=== PATIENT | female | born 1995 | race Caucasian/White ===

== ENCOUNTER 2024-03-17 10:39 | Outpatient (CLI) | payer OTHER, SELFPAY ==
--- OUTSIDE RECORDS SUMMARY | 2024-03-17 10:46 | XMS_ITS | Encounter Summary ---
Author Name Unknown Organization [place] Address [address] [place] [address] Care Team Providers Care Color Control Operator Name Role Phone Consultants, Dario Speech Lang Path Therapist Primary Care Provi ta No Ref-Primary, Physician Primary Care Provider Encounter Details Date Type Department Care Team (Late st Contact Info) Description 07/23/[address] [facility] [address] [place] [address] Yvette Chino MD [address] [place] [address] [id number] Indication for care in labor or delivery (Primary Dx) Social History Tobacco Use Types Packs/Day Years Used Date Smoking Tobacco: Never Smokeless Tobacco: Never Alcohol Use Standard Drinks/Week Comments No 0 (1 standard drink = 0.6 oz pur e alcohol) Sex and Gender Information Value Date Recorded Sex Assigned at Not on file Gender Identity Not on file Sexual Orientation Not on file documented as of this encounter Plan of Treatment Not on file documented as of this encounter Results * Asymptomatic COVID-19 Virus (Coronavirus) by PCR Nose (07/26/2021 11:43 AM CDT) SARS CoV2 PCR Negative Negative 07/26/2021 10:16 PM CDT [facility] Comment:NEGATIVE: SARS-CoV-2 (COVID-19) RNA not detected, presumed negative. Swab NASAL STRUCTURE / Unknown Non-blood Collection / Unknown 07/26/2021 11:43 AM CDT 07/26/2021 11:44 AM CDT Narrative [facility] - 07/26/2021 10:16 PM CDT Testing was performed using the Xpert Xpress SARS-CoV-2 Assay on the [employer]pert Instrument Systems. Additional information about this Emergency Use Authorization (EUA) assay can be found via the Lab Guide. This test should be ordered for the detection of SARS-CoV-2 in individuals who meet SARS-CoV-2 clinical and/or epidemiological criteria. Test performance is unknown in asymptomatic patients. This test is for in vitro diagnostic use under the FDA EUA for laboratories certified under CLIA to perform high complexity testing. This test has not been FDA cleared or approved. A negative result does not rule out the presence of PCR inhibitors in the specimen or target RNA in concentration below the limit of detection for the assay. The possibility of a false negative should be considered if the patient's recent exposure or clinical presentation suggests COVID-19. This test was validated by the [facility]. This laboratory is certified under the Clinical Laboratory Improvement Amendments of 1988 (CLIA-88) as qualified to perform high complexity laboratory testing. Yvette Chino MD LAB - MICRO GENERAL ORDERABLES [facility] ([facility]) [address] [facility] [place] [address], [facility] [phone] documented in this encounter Visit Diagnoses Diagnosis Indication for care in labor or delivery- Primary Unspecified indication for care or intervention related to labor and delivery, unspecified as to episode of care documented in this encounter Care Teams Color Control Operator Relationship Specialty Start Date End Date Consultants, Dario Speech Lang Path Therapist [address] [place] [address] PCP - General 08/13/17 07/28/21 No Ref-Primary, Physician PCP - General 07/29/21 documented as of this encounter
--- OUTSIDE RECORDS SUMMARY | 2024-03-17 10:46 | XMS_ITS | Referral Summary ---
Author Name Unknown Organization [facility] Address [address] [place] [id number] Care Team Providers Care Test Kitchen Home Economist Name Role Phone No Ref-Primary, Physician Primary Care Provider Allergies Active Allergy Reactions Criticality Noted Date Comments Penicillins Rash Low 01/19/2016 Medications Medication Sig Dispensed Refills Start Date End Date Status Vit-Fe Fumarate-FA ( MULTIVITAMIN PLUS IRON) 27-0.8 MG TABS Take 1 tablet by mouth daily Active Active Problems Problem Noted Date Diagnosed Date (spontaneous vaginal delivery) 08/26/2017 (spontaneous vaginal delivery) 01/20/2016 Indication for care in labor or delivery 016 Indication for care in labor and delivery, deliv ered 01/19/2016 Social History Tobacco Use Types Packs/Day Years Used Date Smoking Tobacco: Never Smokeless Tobacco: Never Alcohol Use Standard Drinks/Week Comments No 0 (1 standard drink = 0.6 oz pur e alcohol) Adolescent Education Answer Date Record ed Getting School Help Needed Not on file 08/09 Sex and Gender Information Value Date Recorded Sex Assigned at Not on file Gender Identity Not on file Sexual Orientation Not on file Last Filed Vital Signs Vital Sign Reading Time Taken Comments Blood Pressure 98/63 07/30/2021 9:20 AM CDT Pulse 60 07/30/2021 9:20 AM CDT Temperature 37.1 ??C (98.7 ??F) 07/30/2021 9:20 AM CD T Respiratory Rate 16 07/30/2021 9:20 AM CDT Oxygen Saturation 99% 01/28/2020 9:30 PM CDT Inhaled Oxygen Concentration - - Weight 62.6 kg (138 lb) 07/29/2021 8:01 AM CDT Height 157.5 cm (5' 2) 07/29/2021 8:01 AM CDT Body Mass Index 25.24 07/29/2021 8:01 AM CDT Plan of Treatment Not on file Procedures Procedure Name Priority Date/Time Associated Diagnosis Comments HIV 1&2 ANTIBODY (EXTERNAL RESULT) Routine 01/09/2021 12:00 PM BORING MACHINE SET UP OPERATOR from Last 3 Months or Most Recently Relevant to Health Maintenance Results * HIV-1 Antibody (External Result) (01/09/2021 12:00 PM BORING MACHINE SET UP OPERATOR) HIV 1&2 Antibody (External) Nonreactive Nonreactive EXTERNAL LAB 01/09/2021 12:0 0 PM BORING MACHINE SET UP OPERATOR Patient Reported LAB - HIM EXTERNAL R ESULT EXTERNAL LAB External Lab from Last 3 Months or Most Recently Relevant to Health Maintenance Advance Directives For more information, please contact: [phone] * Full Code (Latest Code Status on File) Date Activated Date Inactivated Comments 07/29/2021 8:51 AM 07/29/2021 1:50 PM All basic an d advanced life-sustaining interventions are performed as appropriate Question Answer Comments Code status determined by: Discussion with patie nt/ legal decision maker * Full Code Date Activated Date Inactivated Comments 07/29/2021 8:47 AM 07/29/2021 8:51 AM All basic an d advanced life-sustaining interventions are performed as appropriate Question Answer Comments Code status determined by: Discussion with patie nt/ legal decision maker Care Teams Test Kitchen Home Economist Relationship Specialty Start Date End Date No Ref-Primary, Physician PCP - General 07/29/21
--- OUTSIDE RECORDS SUMMARY | 2024-03-17 10:46 | XMS_ITS | Clinical Summary ---
Author Name Unknown Organization [facility] Address [address] [place] [address] Care Team Providers Care High Density Finishing Operator Name Role Phone No Ref-Primary, Physician Primary [...] 07/29/2021 8:01 AM CDT Plan of Treatment Health Maintenance Due Date Last Done Comments ADVANCE CARE PLANNING 1996 ANNUAL REVIEW OF HM ORDERS 1996 YEARLY PREVENTIVE VISIT 1996 HPV IMMUNIZATION (2 - 3-dose series) 12/17/2012 11/19/2012 HEPATITIS C SCREENING 2014 HEPATITIS B IMMUNIZATION (1 of 3 - 19+ 3-dose series) 2015 PAP 2017 COVID-19 Vaccine ( - 2022- season) 2023 PHQ-2 (once per calendar year) 2023 INFLUENZA VACCINE (Season Ended) 2024 09/04/2020, 08/13/2017, 08/14/2015, Additional history exists DTAP/TDAP/TD IMMUNIZATION (4 - Td or Tdap) 05/24/2031 05/24/2021, 06/25/2017, 11/20/2015 MENINGITIS IMMUNIZATION Completed 11/19/2012 HIV SCREENING Completed 01/09/2021, 01/08, 06/18/2015 IPV IMMUNIZATION Aged Out No longer e ligible based on patient's age to complete this topic Pneumococcal Vaccine: Pediatrics (0 to 5 Years) and At-Risk Patients (6 to 64 Years) Aged Out No longer eligible based on patient's age to complete this topic RSV MONOCLONAL ANTIBODY Aged Out No l onger eligible based on patient's age to complete this topic Procedures Procedure Name Priority Date/Time Associated Diagnosis Comments HIV 1&2 ANTIBODY (EXTERNAL RESULT) Routine 01/09/2021 12:00 PM CABLE ENGINEER OUTSIDE PLANT from Last 3 Months or Most Recently Relevant to Health Maintenance Results * HIV-1 Antibody (External Result) (01/09/2021 12:00 PM CABLE ENGINEER OUTSIDE PLANT) HIV 1&2 Antibody (External) Nonreactive Nonreactive EXTERNAL LAB 01/09/2021 12:0 0 PM CABLE ENGINEER OUTSIDE PLANT Patient Reported LAB - HIM EXTERNAL R ESULT EXTERNAL LAB External Lab from Last 3 Months or Most Recently Relevant to Health Maintenance Advance Directives For more information, please contact: [phone] * Full Code (Latest Code Status on File) Date Activated Date Inactivated Comments 07/29/2021 8:51 AM 07/29/2021 1:50 PM All basic an d advanced life-sustaining interventions are performed as appropriate Question Answer Comments Code status determined by: Discussion with mamadou nt/ legal decision maker * Full Code Date Activated Date Inactivated Comments 07/29/2021 8:47 AM 07/29/2021 8:51 AM All basic an d advanced life-sustaining interventions are performed as appropriate Question Answer Comments Code status determined by: Discussion with mamadou nt/ legal decision maker Care Teams High Density Finishing Operator Relationship Specialty Start Date End Date No Ref-Primary, Physician PCP - General 07/29/21
--- OUTSIDE RECORDS SUMMARY | 2024-03-17 10:46 | XMS_ITS | Encounter Summary ---
Author Name Unknown Organization [place] Address [address] [facility] [address] Care Team Providers Care Dock Attendant Name Role Phone Consultants, Dario Gel Coater Primary Care Provi ta No Ref-Primary, Physician Primary Care Provider Encounter Details Date Type Department Care Team (Late st Contact Info) Description 07/08/2021 External Order Results [facility] [address] [place] [address] Outside, Provider Social History Tobacco Use Types Packs/Day Years [...] on file documented as of this encounter Procedures Procedure Name Priority Date/Time Associated Diagnosis Comments GROUP B STREPTOCOCCUS (EXTERNAL RESULT) Routine 07/08/2021 9:37 AM CDT HEMOGLOBIN Routine 07/08/2021 9:37 AM CDT documented in this encounter Results * Group B Strep PCR (External Result) (07/08/2021 9:37 AM CDT) Group B Streptococcus (External) No Group B Streptococcus detected by PCR. No Group B Streptococcus detected by PCR. NON-INTERF ACED (ONBASE SCANS) 07/08/2021 9:37 AM CDT Narrative [facility] - 07/11/2021 4:14 PM CDT Verified by Lizzette Lindsay on 07/11/2021. Patient Reported LAB - HIM EXTERNAL R ESULT Performing Organization Address City/[facility]/ZIP Co de Phone Number [facility] NON-INTERFACED (ONBASE SCANS) * (ABNORMAL) Hemoglobin (07/08/2021 9:37 AM CDT) Hemoglobin (External) 11.5(L) 12.0 - 15.0 g/dL NON-INTERFACE D (ONBASE SCANS) Comment:i FINGERSTICK HEMOGL OBIN Blood 07/08/2021 9:37 AM CDT Narrative [facility] - 07/11/2021 4:14 PM CDT Verified by Lizzette Lindsay on 07/11/2021. Patient Reported LAB - BLOOD ORDERABL ES [facility] NON-INTERFACED (ONBASE SCANS) documented in this encounter Visit Diagnoses Not on filedocumented in this encounter Care Teams Dock Attendant Relationship Specialty Start Date End Date ConsultantsDario Gel Coater [address] [place] [address], [address] [place] [address] PCP - General 08/13/17 07/28/21 No Ref-Primary, Physician PCP - General 07/29/21 documented as of this encounter
== END 2024-03-17 10:40 | disposition home or self-care (01) ==
PROVIDERS: PCP Nurse Practitioner Family; Visit Provider Nurse Practitioner Family
DX: Z00.00 Encounter for general adult medical examination without abnormal findings (principal); N92.6 Irregular menstruation, unspecified; R53.83 Other fatigue; Z13.6 Encounter for screening for cardiovascular disorders
CPT/HCPCS: 80053; 80061; 84443